=== PATIENT | female | born 1950 | race Caucasian/White ===

== ENCOUNTER → 2019-10-01 12:15 | Outpatient (CLI) | payer MEDICARE, SELFPAY ==
--- NOTE | 2019-10-01 | CA_ITS ---
APPROVED REPORT Exam: Exercise Treadmill Technologist: Tosin Gould Ht: 5 ft 8 in Wt: 209 lbs BSA: 2.08 m2 HR: 61 bpm BP: 162/99 mmHg Indications: PaIN between shoulders Medical History Medications: Aspirin,,,,, Losartan,,,,, Atorvastatin,,,,, HCTZ,,,,, Carvedilol,,,,, Stress Test Details Test: James HR Resting HR: 67 bpm Max Heart Rate (APMHR): 150 bpm Max HR Achieved: 140 bpm Target HR (85% APMHR): 127 bpm % of APMHR: 93 Recovery HR: 83 bpm BP Resting BP: 162.0/99.0 mmHg Max BP: 165.0/94.0 mmHg Recovery BP: 140.0/92.0 mmHg ECG Clinical Exercise duration: 07:47 min Highest Stage Achieved: Exercise capacity: 10.1 METs Stress ECG Conclusion Resting ECG: Sinuis rhythm James protocol completed. Patient exercised 07:47. Test stopped due to shortness of breath. Symptoms: Shortness of breath at peak exercise. Resolved in recovery. No chest pain. Arrnhythmias/Ectopy: Occasional PVC. Occasional PAC. Occasional couplets. ST-T Changes: Less than 1.[address] depression. The EKG portion of the exercise treadmill stress test is nondiagnostic due to baseline abnormal EKG. Conclusion: The EKG portion of the exercise treadmill stress test is nondiagnostic due to baseline abnormal EKG, there is abnormal blood pressure response, there was no exercise-induced chest discomfort. Repeat a study with myocardial perfusion is recommended for further evaluation. Test Summary REST . . . . . . . Sitting REST 07:36 0.0 0.0 67 . 162/ 99 . . Stage 1 01:00 10.0 1.7 84 . . . . Stage 1 02:00 10.0 1.7 89 . . . . Stage 1 03:00 10.0 1.7 101 . 158/ 90 . . Stage 2 01:00 12.0 2.5 112 . . . . Stage 2 02:00 12.0 2.5 118 . . . . Stage 2 03:00 12.0 2.5 121 . 165/ 94 . . Stage 3 01:00 14.0 3.4 135 . . . . Stage 3 01:47 14.0 3.4 140 . . . Stop exercise at 07:47 RECOVERY 01:00 0.0 0.0 121 . 158/ 96 . . RECOVERY 02:00 0.0 0.0 102 . 158/ 96 . . RECOVERY 03:00 0.0 0.0 91 . 148/106 . . RECOVERY 04:00 0.0 0.0 85 . 148/106 . . RECOVERY 05:00 0.0 0.0 87 . 148/106 . . RECOVERY 06:00 0.0 0.0 83 . 148/106 . . RECOVERY 06:27 0.0 0.0 84 . 140/ 92 . . Electronically signed by : Zan Trinidad, 10/02/2019 10:14:23
--- NOTE | 2019-10-01 12:18 | CA_ITS ---
APPROVED REPORT EXAM: Comprehensive 2D, Doppler, and color-flow Echocardiogram Clinical Social Work Therapist: Melina Stephens, RT(R) Ht: 5 ft 8 in Wt: 209lbs BSA: 2.08 BP: 127/83 mmHg Indications: Ex smoker, edema, HTN, Hyperlipidemia, family history of HD, CAD, cardiac stenting, Abn EKG 2D Dimensions Aortic Root 3.10 cm F: 2.7 - 3.3 Left Atrium 2.60 cm F: 2.7 - 3.8 LVOT 2.25 cm (M/F) 1.5-2.5 M-Mode Dimensions RVDd 2.01 cm (0.9-2.6) LVDd 4.03 cm (3.5-5.7) LVDs 3.04 cm (3.5-5.7) IVSd 0.99 cm (0.6-1.1) PWd 1.18 cm (0.6-1.1) EF (Teich) 49.20% FS 24.60% EDV (Teich) 71.30 mL ESV (Teich) 36.20 mL LV Diastology E/A Ratio 0.74 Mitral Valve MV A Velocity 95.00 (40-130 cm/s) Left Ventricle Left atrium is mildly enlarged, left ventricle is normal size, mild concentric left ventricular hypertrophy, visually estimated ejection fraction 50%, there appears to be mild hypokinesis involving the distal septum and apical wall. Grade 1 diastolic dysfunction seen without tissue Doppler evidence of raise left atrial pressure. Right Ventricle Right atrium and right ventricular normal size and contractility. Aortic Valve Aortic valve is thickened and calcified leaflet chordae display good mobility, there is no aortic stenosis or aortic insufficiency. Mitral Valve Mitral valve leaflets are minimally thickened, there is no mitral stenosis, there is mild mitral regurgitation. Tricuspid Valve Tricuspid valve is grossly normal, there is mild tricuspid regurgitation. Pulmonic Valve Pulmonic valve is poorly visualized. Great Vessels Aortic root is normal size. Pericardium No significant pericardial effusion noted. Conclusion 1. Mildly enlarged left atrium, normal left ventricular size, mild concentric left ventricular hypertrophy, visually estimated ejection fraction approximately 50% with segmental wall motion abnormality described above, grade 1 diastolic dysfunction seen without tissue Doppler evidence of raise left atrial pressure. 2. Thickened and calcified aortic valve without aortic stenosis or aortic insufficiency 3. Mild mitral and tricuspid regurgitation. 4. No significant pericardial effusion noted. Electronically signed by : Zan Trinidad, 10/02/2019 13:46:04
--- NOTE | 2019-10-01 13:08 | XR_ITS ---
PROCEDURE: XR CHEST 2V CLINICAL HISTORY: atypical angina Chest pain COMPARISON: No exams were available for comparison FINDINGS: The cardiomediastinal silhouette and pulmonary vascularity are within normal limits. Coronary artery calcification or stent noted. Old granulomatous disease. No lobar consolidation or collapse. The degenerative change thoracic spine IMPRESSION: No acute findings. Dictated by: Noel Elizabeth MD 10/01/2019 14:55 Electronically signed by Noel Elizabeth MD in [place] 10/01/2019 14:55
== END ==
PROVIDERS: Visit Provider Internal Medicine
DX: I20.8 Other forms of angina pectoris (principal); E78.5 Hyperlipidemia, unspecified; I50.30 Unspecified diastolic (congestive) heart failure; Z95.5 Presence of coronary angioplasty implant and graft
CPT/HCPCS: 71046; 93017; 93306

== ENCOUNTER → 2022-01-11 12:32 | Outpatient (CLI) | payer MEDICARE, SELFPAY ==
[2022-01-11 12:50] LABS: Basophils # 0.1 K/mm3 (0-0.2); Basophils % 1.3 % (0.1-2.0); Eosinophils # 0.2 K/mm3 (0.0-0.4); Eosinophils % 3.1 % (0.1-12.0); Hemoglobin 15.2 g/dL (14.1-18.0); Lymphocytes # 1.6 K/mm3 (0.7-4.5); Lymphocytes % 27.2 % (10-50); Mean Corpuscular HGB Conc 33.7 g/dL (31.8-35.4); Mean Corpuscular Hemoglobin 32.5 pg (27.0-31.2); Mean Corpuscular Volume 96.2 fl (80-94); Mean Platelet Volume 8.8 fl (7.4-10.4); Monocytes # 0.4 K/mm3 (0.1-1.0); Monocytes % 6.1 % (1.7-9.3); Neutrophils # 3.7 K/mm3 (1.8-7.8); Neutrophils % 62.3 % (37.0-80.0); Platelet Count 237 K/mm3 (142-424); Red Blood Count 4.67 M/mm3 (4.60-6.20); Red Cell Distribution Width 13.4 % (11.5-17.5); White Blood Count 5.9 K/mm3 (4.8-10.8)
[2022-01-11 13:12] LABS: Troponin I < 0.01 ng/ml (0.00-0.034)
[2022-01-11 13:27] LABS: Chloride 98 mmol/L (98-107); Sodium 134 mmol/L (136-145)
[2022-01-11 13:30] LABS: Blood Urea Nitrogen 12 mg/dl (9-20); Estimated Glomerular Filt Rate 66 ml/min (>60); GFR (African American) 80 ML/MIN (>60)
[2022-01-11 13:31] LABS: Carbon Dioxide 32 mmol/L (22.0-30.0); Glucose 100 mg/dl (74-100)
== END ==
PROVIDERS: Visit Provider Internal Medicine
DX: E78.5 Hyperlipidemia, unspecified (principal); I11.9 Hypertensive heart disease without heart failure; I20.9 Angina pectoris, unspecified; R94.31 Abnormal electrocardiogram [ECG] [EKG]; Z95.5 Presence of coronary angioplasty implant and graft; Z01.812 Encounter for preprocedural laboratory examination; Z11.52 Encounter for screening for COVID-19
CPT/HCPCS: 36415; 80048; 84484; 85025; C9803; U0003; U0005

== ENCOUNTER 2022-01-13 09:04 | Day surgery (SDC) | payer MEDICARE, SELFPAY ==
[2022-01-13] VITALS (12 sets, daily range): BP systolic 92–154; BP diastolic 55–93; PULSE 54–72; RESP 16–18; TEMP 36.8; O2SAT 91–98; BMI 32.7
--- NOTE | 2022-01-13 07:03 | IR_ITS ---
APPROVED REPORT Patient Location: Outpatient Cardiovascular Invasive Specialist: ABDI Zaragoza RT (R) PROCEDURES Left heart catheterization Left ventriculogram Selective coronary angiogram Drug-eluting stent deployment to the proximal dominant circumflex artery INDICATION Accelerated angina pectoris, Coronary artery disease Informed consent was obtained prior to the procedure. COMPLICATIONS None Estimated Blood Loss: Less than 10 mls TECHNIQUE One percent lidocaine used to anesthetize the right anterior aspect of the wrist. The right radial artery was accessed via the Seldinger technique. A 6 Chinese sheath was placed in the right radial artery. 2.5 mg of verapamil, 800 mcg of nitroglycerin, 1mg Lidocaine and 5000 U Heparin were given through the arterial sheath. The papa catheter was also used to perform left heart catheterization, left ventriculogram and selective coronary angiogram. At the end the diagnostic angiogram therapeutic heparin was administered giving a therapeutic ACT and a fortino wire was placed into the LAD to provide better guide support. Once the wire was in the LAD an additional Choice PT extra-support wire was placed in the circumflex artery followed by 3.5 x 15 mm resolute [place] stent deployed at 20 chayito reducing the severe stenosis and dissection to 0%. ELEANOR-3 flow was present before and after the procedure. After achieving excellent angiographic results the apparatus was removed the sheath was removed and hemostasis was achieved using TR banding patient was transferred to the postop putting in stable condition ANGIOGRAPHIC RESULTS The left main artery Normal The left anterior descending artery Has an ostial 20% stenosis followed by a stent which is widely patent free of in-stent restenosis with excellent distal transitioning. The remaining vessel has mild 10 to 20% atheromatous plaque The circumflex artery Is a large dominant vessel and gives rise to a high moderate sized ramus intermedius which is widely patent with an mild ostial 20 to 30% stenosis. The circumflex artery distal to the ramus intermedius has an eccentric 70% plaque followed by poststenotic dilatation with what appears to be a dissection within the vessel. 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 Dual antiplatelet therapy 2. LDL less than 55 3. Cardiac rehabilitation 4. Avoidance of tobacco products 5. Risk factor modification 6. Treatment of diastolic dysfunction Electronically signed by : Lele Simmons MD 01/13/2022 10:42:23
--- NOTE | 2022-01-13 14:40 | HMH.PHACLD ---
Guido Coleman has received discharge medication counseling on the following medications: ASPIRIN PLAVIX ATORVASTATIN CARVEDILOL LOSARTAN PATIENT IS RECEIVING NEW PRESCRIPTION FOR PLAVIX. HE TAKES ALL OTHER MEDICATIONS AT HOME. PATIENT VERBALIZED UNDERSTANDING AND HAD NO QUESTIONS AT THIS TIME. -LILIYA LOPEZ, JANINAD
[2022-01-13 14:51] LABS: CATHL Activated Clotting Time 346 SEC (74-125)
== END 2022-01-13 14:18 | disposition home or self-care (01) ==
LOC: CATHLAB 09:06
PROVIDERS: Visit Provider Internal Medicine
DX: E78.5 Hyperlipidemia, unspecified (principal); R94.31 Abnormal electrocardiogram [ECG] [EKG]; Z95.5 Presence of coronary angioplasty implant and graft; I25.118 Atherosclerotic heart disease of native coronary artery with other forms of angina pectoris; I25.83 Coronary atherosclerosis due to lipid rich plaque; Z79.899 Other long term (current) drug therapy; Z88.2 Allergy status to sulfonamides; Z88.8 Allergy status to other drugs, medicaments and biological substances; I50.32 Chronic diastolic (congestive) heart failure; I11.0 Hypertensive heart disease with heart failure
CPT/HCPCS: 85347; 92928; 93458; 99152; 99153; C1725; C1769; C1874; C9600; J1644; Q9967

== ENCOUNTER 2025-10-14 11:21 | Outpatient (CLI) | payer MEDICARE, SELFPAY ==
--- OUTSIDE RECORDS SUMMARY | 2025-10-14 11:23 | XMS_ITS | Encounter Summary ---
Author Organization [facility] Address [address] [place] [address] Care Team Providers Care Sack Sewer Name Role Phone Cornelius Madden DO Primary Care Provider Pavel Eliane MD Unavailable Unavaila ble Encounter Details Date Type Department Care Team (Late st Contact Info) Description 11/26/2020 Orders Only [facility] [address] [place] [address] Med Hanley MD [address] [place] [address] Social History Tobacco Use Types Packs/Day Years Used Date Smoking Tobacco: Former Smokeless Tobacco: Never Alcohol Use Standard Drinks/Week Comments No 0 (1 standard drink = 0.6 oz pur e alcohol) Sex and Gender Information Value Date Recorded Sex Assigned at Not on file Legal Sex Male 9:39 PM EST Gender Identity Not on file Sexual Orientation Not on file documented as of this encounter Plan of Treatment Upcoming Encounters Date Type Department Care Team (Late st Contact Info) Description 10/28/2025 2:45 PM EST Office Visit [facility] [place] 1729 [facility] [address] [place] [address] Tien Leon DO 1729 [facility] [address] [place] [address] documented as of this encounter Visit Diagnoses Not on filedocumented in this encounter Care Teams Sack Sewer Relationship Specialty [place] [address] [place] [address] [id number] PCP - General Family Medicine 09/03/19 Pavel Elaine MD [address] [place] [address] Gastroenterology 01/03/23 documented as of this encounter
--- OUTSIDE RECORDS SUMMARY | 2025-10-14 11:23 | XMS_ITS | Encounter Summary ---
Author Organization [facility] Address [address] [place] [address] Care Team Providers Care Fire Controlman Name Role Phone Jah Madden DO Primary Care Provider [phone] Lele Simmons Unavailable [phone] Reason for Visit * Reason Onset Date Comments Advice Only 01/05/2025 Encounter Details Date Type Department Care Team (Late st Contact Info) Description 01/05/2025 Telephone Division of Surgical Oncology [address] [address] Jason Coronel MD [address] [address] Advice Only Social History Tobacco Use Types Packs/Day Years Used Date Smoking Tobacco: Former Cigarettes 0 Q uit: 1993 Passive Smoke Exposure: Current Smokeless Tobacco: Never Alcohol Use Standard Drinks/Week Comments Never 0 (1 standard drink = 0.6 oz pur e alcohol) Depression Answer Date Recorded PHQ-9 Total Score (Interpret ation of Total Score 1-4 = Minimal depression; 5-9 = Mild depression; 10-14 = Moderate depression; 15-19 = Moderately severe depression) 0 09/23/2024 Sex and Gender Information Value Date Recorded Sex Assigned at Not on file Legal Sex Male 5:17 AM EST Gender Identity Male 11/24/2024 3:36 PM EST Sexual Orientation Straight 11/24/2024 3: 36 PM EST documented as of this encounter Miscellaneous Notes * Telephone Encounter - Juliet Randall RN - 01/05/2025 3:20 PM EST Spoke with Pt's , Esha, she states there was nothing under the dressing and his incision looks fine. She could not figure out how to send picture. * Telephone Encounter - Juliet Randall RN - 01/05/2025 11:40 AM EST Spoke with Pt., answered her questions about his levothyroxine. She states she started to take off his gauze incision dressing and there appears to be something round underneath it. She will remove dressing and send picture via [employer]. * Telephone Encounter - Jaye Francois - 01/05/2025 10:23 AM EST Patient's called in stating that he patient had surgery last week and she has questions regarding his bandages and medications. documented in this encounter Plan of Treatment Upcoming Encounters Date Type Department Care Team (Late st Contact Info) Description 03/08/2026 2:00 PM EDT Office Visit Division of Endocrinology [address] [phone] April Mcghee MD [address] [address] documented as of this encounter Visit Diagnoses Not on filedocumented in this encounter Additional Health Concerns Assessment Noted Time PHQ-9 Depression Total Score: 0 09/23/20 10:53 AM EST documented as of this encounter Care Teams Fire Controlman Relationship Specialty Start Date End Date Jah Madden DO [address] [place] [address] PCP - General Family Medicine 09/23/24 Lele Simmons [address] [place] [address] Internal Medicine 12/09/24 documented as of this encounter
--- OUTSIDE RECORDS SUMMARY | 2025-10-14 11:23 | XMS_ITS | Encounter Summary ---
Author Organization [facility] Address [address] [place] [address] Care Team Providers Care Fisher Scallop Name Role Phone Emmie Peck MD Primary Care Provider Lele Simmons MD Primary Care Provider [phone]- [phone] Cornelius Madden DO Primary Care Provider Pavel Elaine MD Unavailable Unavaila [facility] Encounter Details Date Type Department Care Team (Late st Contact Info) Description 05/09/2011 Telephone [facility] [address] [place] [address] Emmie Peck MD [address] [place], [place] [id number] Social History Tobacco Use Types Packs/Day Years [...] on file documented as of this encounter Miscellaneous Notes * Telephone Encounter - Brynn Jason - 05/09/2011 12:08 PM EDT Gave antibiotic and he is now having reaction skin crawling, can't sleep, itching and difficulty inbreathing He is not taking anymore Will come in tomorrow to see dr new documented in this encounter Plan of Treatment Upcoming Encounters Date Type Department Care Team (Late st Contact Info) Description 10/28/2025 2:45 PM EST Office Visit [facility] [place] [address] [facility] [address] [place] [address] Tien Leon DO 1729 [facility] [address] [place] [address] documented as of this encounter Visit Diagnoses Not on filedocumented in this encounter Care Teams Fisher Scallop Relationship Specialty Start Date End Date Emmie Peck MD [address] [facility] [address] [place] [address] PCP - General Cardiology 03/04/10 11/26/11 Lele Simmons MD [address] [place] [address] PCP - General Cardiology 11/27/11 05/30/18 Cornelius Madden DO [address] [place] [address] PCP - General Family Medicine 09/03/19 Pavel Elaine MD [address] [place] [address] Gastroenterology 01/03/23 documented as of this encounter
--- OUTSIDE RECORDS SUMMARY | 2025-10-14 11:23 | XMS_ITS | Encounter Summary ---
Author Organization [facility] Address [address] [place] [address] Care Team Providers Care Machine Long Goods Helper Name Role Phone Emmie Peck MD Primary Care Provider Lele Simmons MD Primary Care Provider [phone]- [phone] Cornelius Madden DO Primary Care Provider Pavel Elaine MD Unavailable Unavaila ble Reason for Visit * Reason Onset Date Comments Medication Clarification 05/15/2011 Encounter Details Date Type Department Care Team (Late st Contact Info) Description 05/15/2011 Telephone [facility] [address] [place] [address] Emmie Peck MD [address] [place] [address] Medication Clarification Social History Tobacco Use Types Packs/Day Years [...] encounter Miscellaneous Notes * Telephone Encounter - Hannah Garcia LPN - 05/15/2011 5:09 PM EDT ATB sent to pharmacy * Telephone Encounter - Aracelis Gould - 05/15/2011 4:36 PM EDT Pt states he was given a prescription for Cipro las week. States his has pneumonia, wants to know if he can have more cipro. [phone]. documented in this encounter Plan of Treatment Upcoming Encounters Date Type Department Care Team (Late st Contact Info) Description 10/28/2025 2:45 PM EST Office Visit [facility] [place] 1729 [facility] [address] [place] [address] Tien Leon DO [address] [id number] documented as of this encounter Visit Diagnoses Diagnosis Hyperlipidemia Other and unspecified hyperlipidemia GERD (gastroesophageal reflux disease) Esophageal reflux HTN (hypertension) Unspecified essential hypertension Bronchitis, not specified as acute or chronic documented in this encounter Care Teams Machine Long Goods Helper Relationship Specialty Start Date End Date Emmie Peck MD [address] [place] [address] [address] [place] [address] PCP - General Cardiology 03/04/10 11/26/11 Lele Simmons MD [address] [place] [address] PCP - General Cardiology 11/27/11 05/30/18 Cornelius Madden DO [address] [place] [phone] PCP - General Family Medicine 09/03/19 Pavel Elaine MD [address] [place] [address] Gastroenterology 01/03/23 documented as of this encounter
--- OUTSIDE RECORDS SUMMARY | 2025-10-14 11:23 | XMS_ITS | Clinical Summary ---
Author Organization [facility] Address [address] [place] [address] Care Team Providers Care Cna Gna Name Role Phone Jah Madden Primary Care Provider [phone] Social History Tobacco Use Types Packs/Day Years Used Date Smoking Tobacco: Never Assessed Sex and Gender Information Value Date Recorded Sex Assigned at Not on file Legal Sex Male 8:36 AM EDT Gender Identity Not on file Sexual Orientation Not on file Plan of Treatment Health Maintenance Due Date Last Done Comments [facility]-Depression Screening 1950 [facility]-Hepatitis C Screening 1950 [facility]-Medicare Annual Wellness (AWV) 1950 [facility]-/Child/Adol SDOH Screenings 1950 [facility]- SDOH Screenings 1967 [facility]-Adult SDOH Screenings 1967 [facility]-DTaP,Tdap,and Td Vaccine s (1 - Tdap) 1968 [facility]-Pneumococcal Vaccine: 50 + Years (1 of 1 - PCV) 1999 [facility]-Zoster Vaccines (1 of 2) 1999 [facility]-RSV Vaccine: 60+ Years o r (1 - 1-dose 75+ series) 2024 [id number] Vaccine (1 - 20 25-26 season) 2025 [facility]-Influenza Vaccine (#1) 2025 HPV Vaccines Aged Out No longer eligi ble based on patient's age to complete this topic [facility]-HIB Vaccines Aged Out No longer e ligible based on patient's age to complete this topic [facility]-Hepatitis A Vaccines Aged Out No longer eligible based on patient's age to complete this topic [facility]-IPV Vaccines Aged Out No longer e ligible based on patient's age to complete this topic [facility]-Rotavirus Vaccines Aged Out No lo nger eligible based on patient's age to complete this topic Insurance MEDICARE Care Teams Cna Gna Relationship Specialty Start Date End Date Jah Madden DO [address] [place] [address] PCP - General 08/13/24
--- OUTSIDE RECORDS SUMMARY | 2025-10-14 11:23 | XMS_ITS | Encounter Summary ---
Author Organization [facility] Address [address] [place] [address] Care Team Providers Care Physician Surgeon Name Role Phone Emmie Peck MD Primary Care Provider [phone] Lele Simmons MD Primary Care Provider +- [phone] Cornelius Madden DO Primary Care Provider Pavel Elaine MD [facility] Encounter Details Date Type Department Care Team (Late st Contact Info) Description 11/24/2011 Telephone [facility] [place] [address] [place] [address] Marychuy Ortiz, EDILBERTO Social History Tobacco Use Types Packs/Day Years [...] encounter Miscellaneous Notes * Telephone Encounter - Valerie Jaeger - 11/24/2011 9:28 AM EST Patients called stating that paul Perrin gave him is not working his bp was 133/86 and 138/90, 143/86, 140/88 his blood pressure keeps going up, they are concerned. Number to be contacted [phone] documented in this encounter Plan of Treatment Upcoming Encounters Date Type Department Care Team (Late st Contact Info) Description 10/28/2025 2:45 PM EST Office Visit [facility] [place] [address] [facility] [address] [place] [address] Tien Leon DO [facility]29 [facility] [address] [place] [address] documented as of this encounter Visit Diagnoses Not on filedocumented in this encounter Care Teams Physician Surgeon Relationship Specialty Start Date End Date Emmie Peck MD [address] [facility] [address] [place] [address] PCP - General Cardiology 03/04/10 11/26/11 Lele Simmons MD [address] [place] [address] PCP - General Cardiology 11/27/11 05/30/18 Cornelius Madden DO [address] [place] [address] PCP - General Family Medicine 09/03/19 Pavel Elaine MD [address] [place] [address] Gastroenterology 01/03/23 documented as of this encounter
--- OUTSIDE RECORDS SUMMARY | 2025-10-14 11:23 | XMS_ITS | Encounter Summary ---
Author Organization [facility] Address [address] [place] [address] Care Team Providers Care Erp Manager Name Role Phone Emmie Peck MD Primary Care Provider Lele Simmons MD Primary Care Provider +- [phone] Cornelius Madden DO Primary Care Provider Pavel Elaine MD [facility] Encounter Details Date Type Department Care Team (Late st Contact Info) Description 02/17/2011 Telephone [facility] [address] [place] [address] Emmie Peck MD [address] [place], [place] [address] Social History Tobacco Use Types Packs/Day Years Used Date Smoking Tobacco: Never Assessed Sex and Gender Information Value Date Recorded Sex Assigned at Not on file Legal Sex Male 9:39 PM EST Gender Identity Not on file Sexual Orientation Not on file documented as of this encounter Miscellaneous Notes * Telephone Encounter - Dominique Vera - 02/17/2011 9:52 AM EDT Pt's called needs an answer to her questions on why it has taken so long on getting the pt's medicines sent to [facility] and has requested to have them sent to the pt and they will send these in to [facility]. Meka has sent those scripts to the pt's home and also called in a 30 supply of Norvasc since the pt is out of these medication to deb in [place]. I contact pt's to let her know andfarzanae was thankful. documented in this encounter Plan of Treatment Upcoming Encounters Date Type Department Care Team (Late st Contact Info) Description 10/28/2025 2:45 PM EST Office Visit [facility] [place] [address] [facility] [address] [place] [address] Tien Leon DO [facility] [address] [place] [address] documented as of this encounter Visit Diagnoses Not on filedocumented in this encounter Care Teams Erp Manager Relationship Specialty Start Date End Date Emmie Peck MD [address] [place] [address] PCP - General Cardiology 03/04/10 11/26/11 Lele Simmons MD [address] [place] [address] PCP - General Cardiology 11/27/11 05/30/18 Cornelius Madden DO [address] [place] [address] PCP - General Family Medicine 09/03/19 Pavel Elaine MD [address] [place] [address] Gastroenterology 01/03/23 documented as of this encounter
--- OUTSIDE RECORDS SUMMARY | 2025-10-14 11:23 | XMS_ITS | Encounter Summary ---
Author Organization [facility] Address [address] [place] [address] Care Team Providers Care Ironmolder Name Role Phone Lele Simmons MD Primary Care Provider [phone]- [phone] Cornelius Madden DO Primary Care Provider Pavel Elaine MD Unavailable Unavaila ble Encounter Details Date Type Department Care Team (Late st Contact Info) Description 12/20/2011 Telephone [facility] [place] [email or web address] [place] [address] Lele Simmons MD [address] [place] [address] Social History Tobacco Use Types Packs/Day Years [...] encounter Miscellaneous Notes * Telephone Encounter - Deisy To LPN - 12/20/2011 2:55 PM EST Returned patient's 's phone call and she stated she is going to go back to 20mg of Benicar and check his bp throughout the day. She is going to call on Sunday with the results of his bp readings. * Telephone Encounter - Valerie Jaeger - 12/20/2011 11:40 AM EST Patiens called concerning her , she was stating that patients BP is running low, he hasno energy, and his arms are feeling heavy. Please call her at [phone]. Thanks documented in this encounter Plan of Treatment Upcoming Encounters Date Type Department Care Team (Late st Contact Info) Description 10/28/2025 2:45 PM EST Office Visit [facility] [place] 17[address] [facility] 103 [place] [phone] Tien Leon DO [address] [id number] documented as of this encounter Visit Diagnoses Not on filedocumented in this encounter Care Teams Ironmolder Relationship Specialty Start Date End Date Lele Simmons MD [address] [place] [address] PCP - General Cardiology 11/27/11 05/30/18 Cornelius Madden DO [address] [place] [address] PCP - General Family Medicine 09/03/19 Pavel Elaine MD [address] [place] [address] Gastroenterology 01/03/23 documented as of this encounter
--- OUTSIDE RECORDS SUMMARY | 2025-10-14 11:23 | XMS_ITS | Encounter Summary ---
Author Organization [facility] Address [address] [place] [address] Care Team Providers Care Purchase Request Editor Name Role Phone Emmie Peck MD Primary Care Provider [phone] Lele Simmons MD Primary Care Provider +- [phone] Cornelius Madden DO Primary Care Provider Pavel Elaine MD Unavailable Unavaila [facility] Encounter Details Date Type Department Care Team (Late st Contact Info) Description 05/10/2011 Telephone [facility] [address] [place] [address] Willis Pierce MD Social History Tobacco Use Types Packs/Day Years [...] encounter Miscellaneous Notes * Telephone Encounter - Jenae Guaman - 05/10/2011 11:45 AM EDT Patient is requesting STAT on CT that he had this morning They are going out of town and need results right away Please call downstairs ask for will, miranda or oz Can dr new read MONTRELL reno today at 1:00 documented in this encounter Plan of Treatment Upcoming Encounters Date Type Department Care Team (Late st Contact Info) Description 10/28/2025 2:45 PM EST Office Visit [facility] [place] [address] [place] [address] Tien Leon DO 1729 [facility] 103 [place] [address] documented as of this encounter Visit Diagnoses Not on filedocumented in this encounter Care Teams Purchase Request Editor Relationship Specialty Start Date End Date Emmie Peck MD [address] 230 [place] [address] PCP - General Cardiology 03/04/10 11/26/11 Lele Simmons MD [address] [place] [address] PCP - General Cardiology 11/27/11 05/30/18 Cornelius Madden DO [address] [place] [address] PCP - General Family Medicine 09/03/19 Pavel Elaine MD [address] [place] [address] Gastroenterology 01/03/23 documented as of this encounter
--- OUTSIDE RECORDS SUMMARY | 2025-10-14 11:23 | XMS_ITS | Encounter Summary ---
Author Organization [facility] Address [address] [place] [address] Care Team Providers Care Sterilization Specialist Name Role Phone Emmie Peck MD Primary Care Provider Lele Simmons MD Primary Care Provider +- [phone] Cornelius Madden DO Primary Care Provider Pavel Elaine MD Unavailable Unavaila ble Reason for Visit * Reason Onset Date Comments Medications Refill 01/25/2011 Encounter Details Date Type Department Care Team (Late st Contact Info) Description 01/25/2011 Refill [facility] [address] [place] [address] Emmie Peck MD [address] [place] [address] Medications Refill Social History Tobacco Use Types Packs/Day Years Used Date Smoking Tobacco: Never Assessed Sex and Gender Information Value Date Recorded Sex Assigned at Not on file Legal Sex Male 9:39 PM EST Gender Identity Not on file Sexual Orientation Not on file documented as of this encounter Miscellaneous Notes * Telephone Encounter - Jenae Guaman - 01/25/2011 12:14 PM EST Patient stated that on tenorim script was only for 9 tablets This needs to be 90 day supply with 4 refills and on the amlodipine besylate tabs there were no refills listed on bottle Both scripts comefrom medbrett Lora stated that scripts can be sent to their home listed on file may call patient's at her work of [phone] documented in this encounter Plan of Treatment Upcoming Encounters Date Type Department Care Team (Late st Contact Info) Description 10/28/2025 2:45 PM EST Office Visit [facility] [address] [place] [address] Tien Leon DO 1729 [facility] 103 [place] [address] documented as of this encounter Visit Diagnoses Diagnosis Hyperlipidemia Other and unspecified hyperlipidemia HTN (hypertension) Unspecified essential hypertension GERD (gastroesophageal reflux disease) Esophageal reflux documented in this encounter Care Teams Sterilization Specialist Relationship Specialty Start Date End Date Emmie Peck MD [address] [place] [address] [address] [place] [address] PCP - General Cardiology 03/04/10 11/26/11 Lele Simmons MD [address] [place] [address] PCP - General Cardiology 11/27/11 05/30/18 Cornelius Madden DO [address] [place] [address] PCP - General Family Medicine 09/03/19 Pavel Elaine MD [address] [place] [address] Gastroenterology 01/03/23 documented as of this encounter
--- OUTSIDE RECORDS SUMMARY | 2025-10-14 11:23 | XMS_ITS | Encounter Summary ---
Author Organization [facility] Address [address] [place] [address] Care Team Providers Care Meat Manager Name Role Phone Lele Simmons MD Primary Care Provider [phone]- [phone] Cornelius Madden DO Primary Care Provider Pavel Elaine MD Unavailable Unavaila ble Reason for Visit * Reason Onset Date Comments Medications Refill 01/22/2012 Encounter Details Date Type Department Care Team (Late st Contact Info) Description 01/22/2012 Refill [facility] [place] [address] [place] [address] Lele Simmons MD [address] [place] [address] Medications Refill Social History Tobacco Use Types [...] 2:45 PM EST Office Visit [facility] [place] 1729 [facility] 103 [place] [address] [place] [address] [place] [address] 103 [place], [place] [id number] documented as of this encounter Visit Diagnoses Diagnosis Hyperlipidemia Other and unspecified hyperlipidemia HTN (hypertension) Unspecified essential hypertension GERD (gastroesophageal reflux disease) Esophageal reflux documented in this encounter Care Teams Meat Manager Relationship Specialty Start Date End Date Lele Simmons MD [address] [place] [address] PCP - General Cardiology 11/27/11 05/30/18 Cornelius Madden DO [address] [place] [address] PCP - General Family Medicine 09/03/19 Pavel Elaine MD [address] [place] [address] Gastroenterology 01/03/23 documented as of this encounter
--- OUTSIDE RECORDS SUMMARY | 2025-10-14 11:23 | XMS_ITS | Encounter Summary ---
Author Organization [facility] Address [address] [place] [address] Care Team Providers Care Embossing Press Operator Name Role Phone Jah Madden DO Primary Care Provider [phone] Lele Simmons Unavailable [phone] Reason for Visit * Reason Onset Date Comments Medication Management 02/23/2025 Encounter Details Date Type Department Care Team (Late st Contact Info) Description 02/23/2025 Telephone Division of Surgical Oncology [address] [address] Jason oCronel MD [address] [address] Medication Management Social History Tobacco Use Types Packs/Day Years [...] depression; 15-19 = Moderately severe depression) 0 01/22/2025 Sex and Gender Information Value Date Recorded Sex Assigned at Not on file Legal Sex Male 5:17 AM EST Gender Identity Male 11/24/2024 3:36 PM EST Sexual Orientation Straight 11/24/2024 3: 36 PM EST documented as of this encounter Miscellaneous Notes * Telephone Encounter - JANNETH Drake - 02/23/2025 4:10 PM EDT RX sent for refill for 30 days. He will most likely not need this alf and will have TSH checked when he sees endocrinology * Telephone Encounter - Kaylin Nora - 02/23/2025 12:59 PM EDT Patient's phoned in requesting a refill of Levothyroxine for patient. They would like this sent to [facility] [place], [place]. documented in this encounter Plan of Treatment Upcoming Encounters Date Type Department Care Team (Late st Contact Info) Description 03/08/2026 2:00 PM EDT Office Visit Division of Endocrinology [address] [address] April Mcghee MD [address] [address] documented as of this encounter Visit Diagnoses Not on filedocumented in this encounter Additional Health Concerns Assessment Noted Time PHQ-9 Depression Total Score: 0 01/23/20 25 12:54 PM EST documented as of this encounter Care Teams Embossing Press Operator Relationship Specialty Start Date End Date Jah Madden DO [address] [place] [address] PCP - General Family Medicine 09/23/24 Lele Simmons [address] [place] [address] Internal Medicine 12/09/24 documented as of this encounter
--- OUTSIDE RECORDS SUMMARY | 2025-10-14 11:23 | XMS_ITS | Encounter Summary ---
Author Organization [facility] Address [address] [place] [address] Care Team Providers Care Chronic Condition Nurse Name Role Phone Madden Jah Hair DO Primary Care Provider [phone] Lele Simmons Unavailable [phone] Reason for Visit * Reason Onset Date Comments Opac Patient Tracker 12/09/2024 Encounter Details Date Type Department Care Team (Late st Contact Info) Description 12/09/2024 Telephone Pre-Procedure Evaluation and [facility] [address] [address] Aliya Brower MA Opac Patient Tracker Social History Tobacco Use Types Packs/Day Years [...] encounter Miscellaneous Notes * Telephone Encounter - Aliya Brower MA - 12/11/2024 2:44 PM EST I have left vm message for nurse asking for a call back to answer if Dr. Simmons received message that Please make the pearl digger aware that we are holding his plavix for 5 days prior to his surgery but continuing his Aspirin as well. * Telephone Encounter - Joanna Figueroa RN - 12/10/2024 3:08 PM EST Received from [facility] cardiac cath 01-13-2022, echo 10-01-2019 and exercise stress test 10-01-2019. * Telephone Encounter - Joanna Figueroa RN - 12/10/2024 2:26 PM EST Received from Dr. Simmons's office cardiac clinic note and EKG 11-03-2024. Request faxed to [facility] for cardiac testing. * Telephone Encounter - Aliya Brower MA - 12/10/2024 2:00 PM EST LVM for Dr. Simmons office see if information was received by Valery * Telephone Encounter - Aliya Brower MA - 12/10/2024 10:33 AM EST I have spoken with Valery in Dr. Simmons office to see if request was received she has ask that I re-fax information -Done ----- Message from JANNETH Allen sent at 12/09/2024 11:18 AM EST ----- Regarding: cardiology records Can we please request cardiology records, including most recent testing (including last EKG if available) and last OVN from his pearl digger He last saw his pearl digger in July 2024 and had a cardiac cath done in 12/2021. Please make the pearl digger aware that we are holding his plavix for 5 days prior to his surgery but continuing his Aspirin as well. * Telephone Encounter - Aliya Brower MA - 12/09/2024 12:03 PM EST I have faxed request for records and information letting provider know we are holding Plavix to Dr. Lele Simmons at [facility] Phone- [phone] Fax- [phone] * Telephone Encounter - Aliya Brower MA - 12/09/2024 11:24 AM EST ----- Message from JANNETH Allen sent at 12/09/2024 11:18 AM EST ----- Regarding: cardiology records Can we please request cardiology records, including most recent testing (including last EKG if available) and last OVN from his pearl digger. He sees Dr. Lele Simmons at [facility] Phone- [phone] Fax- [phone] He last saw his pearl digger in July 2024 and had a cardiac cath done in 12/2021. Please make the pearl digger aware that we are holding his plavix for 5 days prior to his surgery but continuing his Aspirin as well. Thank you!! Joanna documented in this encounter Plan of Treatment Upcoming Encounters Date Type Department Care Team (Late st Contact Info) Description 03/08/2026 2:00 PM EDT Office Visit Division of Endocrinology [address] [address] April Mcghee MD [address] [address] documented as of this encounter Visit Diagnoses Not on filedocumented in this encounter Additional Health Concerns Assessment Noted Time PHQ-9 Depression Total Score: 0 09/23/20 10:53 AM EST documented as of this encounter Care Teams Chronic Condition Nurse Relationship Specialty Start Date End Date Jah Madden DO 18[address] [facility] [place] [address] PCP - General Family Medicine 09/23/24 Lele Simmons [address] [place] [address] Internal Medicine 12/09/24 documented as of this encounter
--- OUTSIDE RECORDS SUMMARY | 2025-10-14 11:23 | XMS_ITS | Encounter Summary ---
Author Organization [facility] Address [address] [place] [address] Care Team Providers Care Educational Technology Specialist Name Role Phone Lele Simmons MD Primary Care Provider [phone] Cornelius Madden DO Primary Care Provider Pavel lEaine MD Unavailable Unavaila ble Encounter Details Date Type Department Care Team (Late st Contact Info) Description 07/30/2012 Telephone [facility] [place] [address] [place] [address] Lele Simmons MD [address] [place] [address] Social History Tobacco Use Types Packs/Day Years [...] Telephone Encounter - Deisy To LPN - 07/30/2012 10:38 AM EDT Tried contacting patient with no answer but left a message on patient's answering machine informingthem that patient has an appointment with Marychuy on 08/02/12 and that he can speak with her about the effient at that time. Also stated in the message if there were any further questions to contact the office. * Telephone Encounter - Oralia Kidd - 07/30/2012 10:06 AM EDT Pt's wants to know if pt can go off of effiant, please return her call, thanks. MESSAGE IS EMILY UGARTE documented in this encounter Plan of Treatment Upcoming Encounters Date Type Department Care Team (Late st Contact Info) Description 10/28/2025 2:45 PM EST Office Visit [facility] [place] 1729 [facility] 103 [place] [address] Tien Leon DO [address] [address] documented as of this encounter Visit Diagnoses Not on filedocumented in this encounter Care Teams Educational Technology Specialist Relationship Specialty Start Date End Date Lele Simmons MD [address] [place] [address] PCP - General Cardiology 11/27/11 05/30/18 Cornelius Madden DO [address] [place] [address] PCP - General Family Medicine 09/03/19 Pavel Elaine MD [address] [place] [address] Gastroenterology 01/03/23 documented as of this encounter
--- OUTSIDE RECORDS SUMMARY | 2025-10-14 11:23 | XMS_ITS | Encounter Summary ---
Author Organization [facility] Address [address] [place] [address] Care Team Providers Care Ditching Machine Operator Name Role Phone Emmie Peck MD Primary Care Provider [phone] Lele Simmons MD Primary Care Provider +- [phone] Cornelius Madden DO Primary Care Provider Pavel Elaine MD Unavailable Unavaila [facility] Encounter Details Date Type Department Care Team (Latest Contact Info) Description 11/24/2011 Transcribe Orders [facility]ASC[facility] [address] [place] [address] Emmie Peck MD [address] [place], [place] [id number] Abnormal stress test; CAD (coronary artery disease); Hyperlipidemia; HTN (hypertension); COPD (chronic obstructive pulmonary disease) Social History Tobacco Use Types Packs/Day Years [...] 2:45 PM EST Office Visit [facility] [place] [address] [place] [address] Tien Leon DO 17[address] [facility], [address] [place] [address] documented as of this encounter Results * XR Chest PA And Lateral (11/24/2011 4:05 PM EST) Anatomical Region Laterality Modality Chest Computed Radiogr aphy 11/24/2011 4:05 PM EST Narrative 11/24/2011 4:32 PM EST Technique: PA and lateral views of the chest. Two views. History: CAD. Findings: There is no acute process. There are calcified nodules bilaterally. Impression: No acute process. lkv Procedure Note Duane Wyatt - 11/24/2011 Technique: PA and lateral views of the chest. Two views. History: CAD. Findings: There is no acute process. There are calcified nodulesbilaterally. Impression: No acute process. lkv Emmie Peck MD IMG DIAGNOSTIC IMAGING ORDER KEYONNA Final Result * PT INR (11/24/2011 3:46 PM EST) Pathologist [facility] PROTIME 10.7 10.1 - 12.9 SEC [facility] INR 0.9 0.9 - 1.1 [facility] Comment: LEVEL OF THERAPY INDICATIONS TARGET INR RANGE STANDARD DOSE TREATMENT OF VENOUS THROMBOSIS 2.0-3.0 TREATMENT OF PULMONARY EMBOLUS PROPHYLAXIS AGAINST VENOUS THROMBOSIS BY SYSTEMIC EMBOLIZATION . HIGH DOSE HIGH RISK PATIENTS WITH 2.5-3.5 MECHANICAL HEART VALVES 11/24/2011 3:46 PM EST 11/24/2011 9:46 PM EST Emmie Peck MD HEMATOLOGY ORDERABLES Final Result [facility] [address] [facility] [place] [address] * (ABNORMAL) Comprehensive Metabolic Panel (11/24/2011 3:46 PM EST) Pathologist [facility] SODIUM 137 135 - 145 MMOL/L [facility] POTASSIUM 4.0 3.6 - 5.0 MMOL/L [facility] CHLORIDE 100(L) 101 - 111 MMOL/L [facility] CO2 31 21 - 31 MMOL/L [facility] GLUCOSE 90 70 - 110 MG/DL [facility] CALCIUM 9.4 8.5 - 10.5 MG/DL [facility] PROTEIN TOTAL 8.2 6.7 - 8.2 G/DL [facility] T BILIRUBIN 1.1(H) 0.2 - 1.0 MG/DL [facility] CREATININE 1.2 0.6 - 1.2 MG/DL [facility] ALP 69 42 - 121 IU/L [facility] AST 27 10 - 42 IU/L [facility] ALT (SGPT) 28 10 - 60 IU/L [facility] BUN 9 6 - 20 MG/DL [facility] Albumin 4.4 3.2 - 5.0 G/DL [facility] A/G Ratio 1.2 [facility] 11/24/2011 3:46 PM EST 11/24/2011 9:46 PM EST us Emmie Peck MD CHEMISTRY ORDERABLES Final R esult [facility] [address] [place] [place] [address] * (ABNORMAL) CBC (11/24/2011 3:46 PM EST) WBC 9.3 3.4 - 11.3 THOU [facility] RBC 4.89 4.32 - 5.64 MIL [facility] HGB 16.2 13.0 - 16.7 G/DL [facility] HCT 46.2 38.5 - 49.3 % [facility] MCV 94.4(H) 82.3 - 94.1 CU [place] [facility] MCH 33.0(H) 27.0 - 31.1 PG [facility] MCHC 35.0(H) 32.6 - 34.9 G/DL [facility] RDW 13.3 11.5 - 14.5 % [facility] MPV 8.6 6.9 - 9.9 fl [facility] Platelet Cnt 214 146 - 374 THOU [facility] Neutrophils 64.9 48.8 - 75.9 % [facility] Lymphocytes 28.2 16.3 - 43.9 % [facility] Monocytes 5.9 2.1 - 13.3 % [facility] Eosinophils 0.6 0.3 - 5.0 % [facility] Basophils 0.4 0.0 - 1.1 % [facility] Neutrophils Abs 6.1 1.6 - 8.5 10 3/uL [facility] Lymphocytes Abs 2.6 0.6 - 4.9 10 3/uL [facility] Monocytes Abs 0.5 0.0 - 1.4 10 3/uL [facility] Eosinophils Abs 0.1 0.0 - 0.5 10 3/uL [facility] Basophils Abs 0.0 0.0 - 0.1 10 3/uL [facility] 11/24/2011 3:46 PM EST 11/24/2011 9:46 PM EST us Emmie Peck MD HEMATOLOGY ORDERABLES Final Result Performing Organization Address City/State/[facility] [place] Phone Number [facility] [address] [place] [address] documented in this encounter Visit Diagnoses Diagnosis Abnormal stress test Other nonspecific abnormal cardiovascular system function study CAD (coronary artery disease) Coronary atherosclerosis of unspecified type of vessel, [place] or graft Hyperlipidemia Other and unspecified hyperlipidemia HTN (hypertension) Unspecified essential hypertension COPD (chronic obstructive pulmonary disease) (HCC) Chronic airway obstruction, not elsewhere classified documented in this encounter Care Teams Ditching Machine Operator Relationship Specialty Start Date End Date Emmie Peck MD [address] [place] [address] PCP - General Cardiology 03/04/10 11/26/11 Lele Simmons MD [address] [place] [address] PCP - General Cardiology 11/27/11 05/30/18 Cornelius Madden DO [address] [place] [address] [id number] PCP - General Family Medicine 09/03/19 Pavel Elaine MD [facility] [address] [place] [address] Gastroenterology 01/03/23 documented as of this encounter
--- OUTSIDE RECORDS SUMMARY | 2025-10-14 11:23 | XMS_ITS | Clinical Summary ---
Author Organization [facility] Address [address] [place] [address] Care Team Providers Care Appeals Assistant Name Role Phone [place] Jah Laxmi BOYKIN Primary Care Provider [phone] Lele Simmons Unavailable [phone] Allergies Active Allergy Reactions Criticality Noted Date Comments Sulfa Antibiotics 12/10/2018 Other Reaction(s): Unknown (comments) Other reaction(s): Unknown (comments) Medications Aspirin [address] tablet Take 1 tablet by mouth daily. Active Atorvastatin 20 MG tablet Take 1 tablet by mouth at bedtime. 4 Active carveDILOL 12.5 MG tablet 2 times daily. Morning and night Active Clopidogrel 75 MG tablet Take 1 tablet by mouth daily. Active hydroCHLOROthia zide 12.5 MG capsule Take 1 capsule by mouth daily. Active losartan 100 MG tablet TAKE ONE TABLET BY MOUTH EVERY DAY FOR HYPERTENSION Active Coenzyme Q10 100 MG capsule Take 1 capsule by mouth daily. Active cholecalciferol 50 MCG (2000 UNIT) tablet Take 1 tablet by mouth daily. Active Ascorbic Acid (Vitamin C) 1000 MG tablet Take by mouth daily. Active Multiple Vitamins-Minera ls (CENTRUM SILVER PO) Take by mouth. Acti ve Boswellia-Gluco samine-Vit D (OSTEO BI-FLEX ONE PER DAY PO) Take by mouth daily. Active Levothyroxine 50 MCG tablet Take 1 tablet 6 days a week and 2 tablets 1 day a week 34 tablet 5 5 Active Active Problems Problem Noted Date Diagnosed Date Papillary thyroid carcinoma 03/09/2025 Postsurgical hypothyroidism 03/09/2025 Obesity (BMI 30.0-34.9) 09/23/2024 Resolved Problems Problem Noted Date Diagnosed Date Resolved Date Thyroid nodule 09/23/2024 03/09/2025 Encounters Date Type Department Care Team Description 07/30/2025 Telephone Division of Endocrinology [address] [place] [address] April Mcghee MD Lab Review from Last 3 Months Family History Medical History Relation Name Comments Heart Failure Brother 1 Myocardial Infarction Father Other - Specify Mother dementia Cancer- Other Sister leukemia Relation Name Status Comments Brother 1 Brother 2 Alive Father Mother Sister Social History Tobacco Use Types Packs/Day Years Used Date Smoking Tobacco: Former Cigarettes 0 Q uit: 1993 Passive Smoke Exposure: Current Smokeless Tobacco: Never Tobacco Cessation:Counseling Given: Not Answered Alcohol Use Standard Drinks/Week Comments Never 0 (1 standard drink = 0.6 oz pur e alcohol) Depression Answer Date Recorded PHQ-9 Total Score (Interpret ation of Total Score 1-4 = Minimal depression; 5-9 = Mild depression; 10-14 = Moderate depression; 15-19 = Moderately severe depression) 0 03/09/2025 Sex and Gender Information Value Date Recorded Sex Assigned at Not on file Legal Sex Male 5:17 AM EST Gender Identity Male 11/24/2024 3:36 PM EST Sexual Orientation Straight 11/24/2024 3: 36 PM EST Last Filed Vital Signs Vital Sign Reading Time Taken Comments Blood Pressure 146/79 03/09/2025 12:04 PM EDT Pulse 62 03/09/2025 12:04 PM EDT Temperature 36.6 C (97.9 F) 03/09/2025 12:04 PM EDT Respiratory Rate 18 03/09/2025 12:04 PM EDT Oxygen Saturation 98% 03/09/2025 12:04 PM EDT Inhaled Oxygen Concentration - - Weight 90.8 kg (200 lb 1.6 oz) 03/09/2025 12:04 PM EDT Height 172.7 cm (5' 7.99 ) 03/09/2025 12:04 PM E DT Body Mass Index 30.43 03/09/2025 12:04 PM EDT Plan of Treatment Upcoming Encounters Date Type Department Care Team (Late st Contact Info) Description 03/08/2026 2:00 PM EDT Office Visit Division of Endocrinology [address] [place] [address] April Mcghee MD [address] [place] [address] Health Maintenance Due Date Last Done Comments HEPATITIS C VIRUS SCREENING 1950 TETANUS 1949 TDAP (ADULT) 1968 COLORECTAL CANCER SCREENING DISCUSSION 1994 PNEUMOCOCCAL VACCINE SERIES (1 of 1 - PCV) 1999 ZOSTER (SHINGLES) VACCINE (1 of 2) 1999 RSV VACCINE (1 - 1-dose 75+ series) 2024 COVID-19 VACCINE ( - 2024-2 6 season) 2025 INFLUENZA VACCINE (#1) 2025 POTASSIUM 12/09/2025 12/09/2024 TSH 12/09/2025 12/09/2024 HEP B VACCINE Aged Out No longer elig ible based on patient's age to complete this topic Procedures Procedure Name Priority Date/Time Associated Diagnosis Comments TSH Routine 12/09/2024 12:20 PM EST Preop exam for internal medicine Thyroid nodule Essential hypertension Mixed hyperlipidemia Gastroesophageal reflux disease without esophagitis Chronic systolic heart failure CHEM 6 (LYTES, BUN CREA) Routine 12/09/2024 12:20 PM EST Preop exam for internal medicine Thyroid nodule Essential hypertension Mixed hyperlipidemia Gastroesophageal reflux disease without esophagitis Chronic systolic heart failure from Last 3 Months or Most Recently Relevant to Health Maintenance Results * CHEM 6 (LYTES, BUN CREA) (12/09/2024 12:20 PM EST) BUN 17 7 - 25 mg/dL 12/09/2024 1:31 PM EST [facility] Sodium 140 135 - 145 mmol/L 12/09/2024 1:31 PM EST [facility] Potassium 4.6 3.5 - 5.0 mmol/L 12/09/2024 1:31 PM EST [facility] Chloride 104 98 - 108 mmol/L 12/09/2024 1:31 PM EST [facility] CO2 31 21 - 31 mmol/L 12/09/2024 1:31 PM EST [facility] Creatinine 1.23 0.70 - 1.30 mg/dL 12/09/2024 1:31 PM EST [facility] Bun/Crea Ratio 14 12/09/2024 1:31 PM EST [facility] Anion Gap 10 7 - 17 mmol/L 12/09/2024 1:[address] [facility] eGFR, CKD-EPI, Male 61 >=60 mL/min/1.7 3m2 12/09/2024 1:31 PM EST [facility] Comment:Reported eGFR is bas ed on the CKD-EPI 2020 equation using creatinine, age, and sex. Blood Venipuncture / Unknown 12/09/2024 12:20 PM EST 12/09/2024 12:54 PM EST Joanna Hung APRN-RETAIL SHIFT SUPERVISOR CHEMISTRY ORDERABLES Final Result Performing Organization Address City/[facility]/ZIP Co de Phone Number [facility] [address] [place] [address] * TSH (12/09/2024 12:20 PM EST) TSH 3.746 0.550 - 4.780 uIU/mL 12/09/2024 5:38 PM EST [facility] Blood Venipuncture / Unknown 12/09/2024 12:20 PM EST 12/09/2024 12:54 PM EST Joanna LAGUNAS ENDOCRINOLOG[facility] Final Resul t [facility] [address] [address] from Last 3 Months or Most Recently Relevant to Health Maintenance Insurance Medicare [employer] HMO PPO Advance Directives For more information, please contact: [phone] (7:30 AM - 6PM [facility], Sunday-Sunday) * Full Code (Latest Code Status on File) Date Activated Date Inactivated Comments 01/02/2025 9:35 AM Care Teams Appeals Assistant Relationship Specialty Start Date End Date Jah Madden DO [address] [place], [place] [id number] PCP - General Family Medicine 09/23/24 Lele Simmons [address] [place] [address] Internal Medicine 12/09/24
--- OUTSIDE RECORDS SUMMARY | 2025-10-14 11:23 | XMS_ITS | Encounter Summary ---
Author Organization [facility] Address [address] [place] [address] Care Team Providers Care Accounting/Finance Tutor Name Role Phone Emmie Peck MD Primary Care Provider [phone] Lele Simmons MD Primary Care Provider [phone] Cornelius Madden DO Primary Care Provider Pavel Elaine MD Unavailable Unavaila ble Encounter Details Date Type Department Care Team (Late st Contact Info) Description 01/17/1994 Historical Encounter [facility] [place], [place] Social History Tobacco Use Types Packs/Day Years [...] 2:45 PM EST Office Visit [facility] [address] [facility] [address] [place] [address] Tien Leon DO [address] [facility] [address] [place] [address] documented as of this encounter Visit Diagnoses Not on filedocumented in this encounter Care Teams Accounting/Finance Tutor Relationship Specialty Start Date End Date Emmie Peck MD [address] [place] [address] PCP - General Cardiology 03/04/10 11/26/11 Lele Simmons MD [address] [place] [address] PCP - General Cardiology 11/27/11 05/30/18 Cornelius Madden DO [address] [place] [address] PCP - General Family Medicine 09/03/19 Pavel Elaine MD [address] [place] [address] Gastroenterology 01/03/23 documented as of this encounter
--- OUTSIDE RECORDS SUMMARY | 2025-10-14 11:23 | XMS_ITS | Clinical Summary ---
Author Organization [facility] Address [address] [place] [address] Care Team Providers Care Cryptologic Technician Technical Name Role Phone Cornelius Madden DO Primary Care Provider Pavel Elaine MD Unavailable Unavaila ble Allergies Active Allergy Reactions Criticality Noted Date Comments Lisinopril Cough 10/27/2011 Sulfamethoxazole-Trimethopr im Shortness Of Breath,Itching,Anxiety High 05/10/2011 Medications [place]-3 Fatty Acids-Vitamin E (FISH OIL) 1,000 mg Cap Take 1 Cap by mouth Daily. Active Ascorbate Calcium-Bioflav onoid (SRINIVASAN-C) 1,000-200 mg TbSR Take 1 Tab by mouth Daily. Active aspirin (ASPIRIN) [address] tablet Take 81 mg by mouth Daily. Active Multivitamins-M inerals-Lutein (CENTRUM SILVER) Tab Take 1 Tab by mouth Daily. Active ketotifen (ALAWAY) 0.025 % ophthalmic solution As needed. Active omeprazole (PRILOSEC) 20 mg capsuleIndicati ons:Hyperlipide kareem Take 1 Cap by mouth Daily. 90 Cap 3 2 Active nitroglycerin (NITROSTAT) 0.4 mg SL tablet Take 1 Tab sublingually As needed. 25 Tab 5 2 Active olmesartan-hydr ochlorothiazide (BENICAR HCT) 20-12.5 mg per tablet Take 1 Tab by mouth Daily. 180 Tab 3 2 Active carvedilol (COREG) 12.5 mg tablet Take 1 Tab by mouth Twice a day with meals. 180 Tab 3 2 Active pravastatin (PRAVACHOL) 40 mg tablet Take 1 Tab by mouth Daily. 90 Tab 3 2 Active losartan (COZAAR) 100 mg tablet Take 100 mg by mouth Daily. Active Hydrochlorothia zide (HYDRODIURIL) 12.5 mg Tab Take 12.5 mg by mouth Daily. Active ascorbic acid (VITAMIN C PO) Take by mouth. Active calcium carbonate/vitam in D3 (VITAMIN D-3 PO) Take by mouth. Activ e Coenzyme Q10 (CO Q-10) 100 mg Cap Take 100 mg by mouth Daily. Active levothyroxine (SYNTHROID) 25 mcg tablet TAKE ONE TABLET PI EVERY MORNING BEFORE BREAKFAST Active Active Problems Problem Noted Date Diagnosed Date Bronchitis, not specified as acute or chronic COPD (chronic obstructive pulmonary disease) Allergic reaction caused by a drug 05/10/2011 Overview (05/10/2011): Bactrim, Sulfa Hyperlipidemia GERD (gastroesophageal reflux disease) HTN (hypertension) Family History Medical History Relation Name Comments Diabetes Brother Heart Disease Father Cancer Sister Diabetes Sister Relation Name Status Comments Brother Father Sister Social History Tobacco Use Types Packs/Day Years Used Date Smoking Tobacco: Former Smokeless Tobacco: Never Tobacco Cessation:Counseling Given: Not Answered Alcohol Use Standard Drinks/Week Comments No 0 (1 standard drink = 0.6 oz pur e alcohol) Sex and Gender Information Value Date Recorded Sex Assigned at Not on file Legal Sex Male 9:39 PM EST Gender Identity Not on file Sexual Orientation Not on file Last Filed Vital Signs Vital Sign Reading Time Taken Comments Blood Pressure 126/80 05/13/2025 12:52 PM EDT Pulse 55 09/03/2019 1:42 PM EDT Temperature 37.1 C (98.8 F) 02/28/2012 5:23 PM EDT Respiratory Rate 18 08/20/2023 10:2 5 AM EDT Oxygen Saturation 97% 09/03/2019 1:42 PM EDT Inhaled Oxygen Concentration - - Weight 90.6 kg (199 lb 12.8 oz) 025 12:52 PM EDT Height 172.7 cm (5' 8 ) 05/13/2025 12:5 2 PM EDT Body Mass Index 30.38 05/13/2025 12:52 PM EDT Plan of Treatment Upcoming Encounters Date Type Department Care Team (Late st Contact Info) Description 10/28/2025 2:45 PM EST Office Visit [facility] [address] [place] [address] Tien Leon DO [address], [address] [place] [address] Health Maintenance Due Date Last Done Comments HEP C SCREENING 1949 ANNUAL WELLNESS EXAM 1952 PNEUMOCOCCAL VACCINE 65+ YEARS (1 of 2 - PCV) 1968 Shingles Vaccine (Shingrix) (1 of 2) 1999 DTAP/TDAP/TD VACCINE (2 - Td or Tdap) 05/18/2024 05/18/2014 COVID-19 Vaccine (2024-2 6 season) 2025 11/01/2021, 03/08/2021, 02/08/2021 INFLUENZA VACCINE (#1) 2025 0, 01/20/2020 HEP A VACCINE Aged Out No longer elig ible based on patient's age to complete this topic HIB VACCINE Aged Out No longer eligi ble based on patient's age to complete this topic ROTOVIRUS VACCINE Aged Out No longer eligible based on patient's age to complete this topic [place] [address] [place] [address] Advance Directives * Full Code (Latest Code Status on File) Date Activated Date Inactivated Comments 11/27/2011 3:31 PM 11/27/2011 11:27 PM Care Teams Cryptologic Technician Technical Relationship Specialty Start Date End Date Cornelius Madden DO [address] [place] [id number] PCP - General Family Medicine 09/03/19 Pavel Elaine MD [address] [place] [address] Gastroenterology 01/03/23
--- OUTSIDE RECORDS SUMMARY | 2025-10-14 11:23 | XMS_ITS | Clinical Summary ---
Author Organization [facility] Address [address] [facility], [address] [place] [address] Care Team Providers Care Bearing Maker Name Role Phone Jah Madden Primary Care Provider Allergies Active Allergy Reactions Criticality Noted Date Comments Lisinopril Cough 10/27/2011 Sulfa Antibiotics 12/10/2018 Other reaction(s): Unknown (comments) Sulfamethoxazole-Trimet hoprim Anxiety,Itching,Shor tness Of Breath High 05/10/2011 Medications ascorbic acid (VITAMIN C) 500 MG tablet Take 2 tablets by mouth Active aspirin 81 MG EC tablet Take by mouth daily Active carvedilol (COREG) 12.5 MG tablet Take by mouth 2 times daily (with meals) Active clopidogrel (PLAVIX) 75 MG tablet Take by mouth Active hydroCHLOROthia zide (MICROZIDE) 12.5 MG capsule Take 1 capsule by mouth daily Active losartan (COZAAR) 100 MG tablet Take 1 tablet by mouth daily Active coenzyme Q10 100 MG CAPS capsule Take 1 capsule by mouth daily Active ketotifen (ZADITOR) 0.025 % ophthalmic solution as needed Active LUTEIN PO Take 1 tablet by mouth daily Active terbinafine (LAMISIL) 250 MG tabletIndicatio ns:Onychomycosi s Take 1 tablet by mouth daily 30 tablet 5 12/19/2023 Active Active Problems Problem Noted Date Diagnosed Date GERD (gastroesophageal reflux disease) 4 12/19/2023 HTN (hypertension) 12/19/2023 12/19/2023 Hyperlipidemia 12/19/2023 12/19/2023 Allergic reaction caused by a drug 05/10/2011 12/19/2023 Overview (12/19/2023): Bactrim, Sulfa Bronchitis, not specified as acute or chronic 12/19/2023 COPD (chronic obstructive pulmonary disease) 12/19/2023 Social History Tobacco Use Types Packs/Day Years Used Date Smoking Tobacco: Never Assessed Sex and Gender Information Value Date Recorded Sex Assigned at Not on file Legal Sex Male 4:40 PM EST Gender Identity Not on file Sexual Orientation Not on file Last Filed Vital Signs Vital Sign Reading Time Taken Comments Blood Pressure 138/68 12/19/2023 10:39 AM EST Pulse 56 12/19/2023 10:39 AM EST Temperature - - Respiratory Rate 16 12/19/2023 10:39 AM EST Oxygen Saturation - - Inhaled Oxygen Concentration - - Weight 91.6 kg (202 lb) 12/19/2023 10:39 AM EST Height 172.7 cm (5' 8 ) 12/19/2023 10:39 AM EST Body Mass Index 30.71 12/19/2023 10:39 AM EST Plan of Treatment Health Maintenance Due Date Last Done Comments Depression Screen 1961 Hepatitis C screen 1967 Pneumococcal 50+ years Vacci ne (1 of 2 - PCV) 1968 Shingles vaccine (1 of 2) 1999 Annual Wellness Visit (Medicare) 03/12/2024 DTaP/Tdap/Td vaccine (2 - Td or Tdap) 05/18/2024 05/18/2014 Respiratory Syncytial Virus (RSV) or age 60 yrs+ (1 - 1-dose 75+ series) 2024 Flu vaccine (#1) 06/19/2025 09/06/2023, 09/28/2020, 01/20/2020 COVID-19 Vaccine ( - 2023-2 5 season) 2025 Hepatitis A vaccine Aged Out No longe r eligible based on patient's age to complete this topic Hepatitis B vaccine Aged Out No longe r eligible based on patient's age to complete this topic Hib vaccine Aged Out No longer eligi ble based on patient's age to complete this topic Meningococcal (ACWY) vaccine Aged Out No longer eligible based on patient's age to complete this topic Meningococcal B vaccine Aged Out No l onger eligible based on patient's age to complete this topic Polio vaccine Aged Out No longer elig ible based on patient's age to complete this topic Insurance [employer] (MEDICARE) Care Teams Bearing Maker Relationship Specialty Start Date End Date Jah Madden DO [address] [place] [address] PCP - General 12/10/18
--- OUTSIDE RECORDS SUMMARY | 2025-10-14 11:23 | XMS_ITS | Encounter Summary ---
Author Organization [facility] Address [address] [place] [address] Care Team Providers Care Cafeteria Counter Attendant Name Role Phone Jah Madden DO Primary Care Provider [phone] Lele Simmons Unavailable [phone] Encounter Details Date Type Department Care Team (Late st Contact Info) Description 11/24/2024 Telephone Division of Surgical Oncology [address] [address] Jason Coronel MD [address] [address] Social History Tobacco Use Types Packs/Day Years [...] encounter Miscellaneous Notes * Telephone Encounter - Jaye Francois - 11/24/2024 4:13 PM EST Patient's called in stating that she may need to change that patient's surgery date, Would like a call back from Michelle. documented in this encounter Plan of Treatment Upcoming Encounters Date Type Department Care Team (Late st Contact Info) Description 03/08/2026 2:00 PM EDT Office Visit Division of Endocrinology [address] [phone] April Mcghee MD [address] [phone] documented as of this encounter Visit Diagnoses Not on filedocumented in this encounter Additional Health Concerns Assessment Noted Time PHQ-9 Depression Total Score: 0 09/23/20 10:53 AM EST documented as of this encounter Care Teams Cafeteria Counter Attendant Relationship Specialty Start Date End Date Jah Madden DO [address] [place] [address] PCP - General Family Medicine 09/23/24 Lele Simmons [address] [place] [address] Internal Medicine 12/09/24 documented as of this encounter
--- NOTE | 2025-10-14 13:45 | CA_ITS ---
APPROVED REPORT EXAM: Comprehensive 2D, Doppler, and color-flow Echocardiogram Office Clerk Assistant: Nan Wakefield RVT Ht: 5 ft 7 in Wt: 200lbs BSA: 2.02 BP: 148/89 mmHg Indications: Congestive Heart Failure,Coronary Artery Disease 2D Dimensions IVSd 1.37 cm M: 0.6-1.2 LVEF (Visual) 43.20 % PWd 0.93 cm M: 0.6 - 1.2 LA Volume 37.30 mL LVDd 4.66 cm M: 4.2 - 5.9 LA Volume Index 18.47 mL/m2 (M/F) 16-34 LVDs 3.67 cm M: 2.5 - 4.0 M-Mode Dimensions RVDd 1.41 cm (0.9-2.6) LA Diam 3.52 cm (1.9-4.0) LVDd 6.20 cm (3.5-5.7) LVDs 4.79 cm (3.5-5.7) IVSd 0.72 cm (0.6-1.1) PWd 0.88 cm (0.6-1.1) EF (Teich) 44.80% FS 22.70% EDV (Teich) 194.00 mL TAPSE 2.36 (<1.7) ESV (Teich) 107.00 mL LV Diastology E Decel Time 183 (160-240 msec) E/A Ratio 0.8 Aortic Valve CARA Index 1.16 cm2/m2 AoV Peak Lei. 96.0 (50-130 cm/s) AO Peak GR. 3.70 mmHg AO Mean GR. 2.00 (<5 mmHg) AO VTI 23.4 (18-25 cm) CARA (VTI) 2.40 (2.5-4.5 cm2) Mitral Valve MV E Max Lei. 56.0 (40-130 cm/s) MV A Velocity 71.0 (40-130 cm/s) E/A Ratio 0.78 MV PHT 54.0 ms Pulmonary Valve PV Peak Velocity 56.0 (50-150 cm/s) Tricuspid Valve TR P. Velocity 248.00 cm/s RAP Estimate 8.00 mmHg RVSP 32.60 mmHg Left Ventricle The left ventricle is normal size. Left ventricular systolic function is mildly reduced. There is increased left ventricular wall thickness. There is severe hypokinesis of the distal and apical LV ramirez. The left ventricular diastolic function is indeterminate. LVEF is 40-45% Right Ventricle The right ventricle is normal size. The right ventricular systolic function is normal. Atria Left atrium is mildly dilated. Right atrium is mildly dilated. There is no color Doppler evidence of interatrial shunt. Aortic Valve The aortic valve is mildly thickened. There is no hemodynamically significant aortic valvular stenosis. Trace aortic regurgitation is present. Mitral Valve The mitral valve is normal in structure. No evidence of mitral valve stenosis. Mild mitral regurgitation is present. Tricuspid Valve The tricuspid valve leaflets are thin and pliable. Trace tricuspid regurgitation. There is insufficient TR jet to estimate RVSP. Pulmonic Valve The pulmonary valve is grossly normal in structure. Trace pulmonic valve regurgitation is present. Great Vessels The aortic root is normal in size. IVC is normal in size and collapses >50% with inspiration. Pericardium There is no pericardial effusion. Other Information Study Quality: Fair Conclusion Mildly reduced LV systolic function (LVEF 40-45%). Severe hypokinesis of the distal and apical LV ramirez. Biatrial dilation. Mild MR. Electronically signed by : Ysabel Portillo MD 10/14/2025 15:38:44
== END 2025-10-14 23:59 | disposition home or self-care (01) ==
LOC: RT 11:21
PROVIDERS: Visit Provider Internal Medicine
DX: I34.0 Nonrheumatic mitral (valve) insufficiency (principal); I50.32 Chronic diastolic (congestive) heart failure; I25.10 Atherosclerotic heart disease of native coronary artery without angina pectoris; R93.1 Abnormal findings on diagnostic imaging of heart and coronary circulation
CPT/HCPCS: 93306